=== PATIENT | male | born 1990 | race Caucasian/White ===

== ENCOUNTER 2023-09-08 09:00 | Outpatient (RCR) | payer BC, SELFPAY ==
--- NOTE | 2023-06-29 15:37 | PT.OPEX ---
PT [facility] Outpatient Eval PT [facility] Outpatient Eval Start: 06/29/23 12:37 Freq: Status: Active Protocol: Document 06/29/23 12:38 CRP (Rec: 06/29/23 15:32 CRP [id number]) E-signed By Han Granados PT Physical Therapy Outpatient Evaluation Insurance Information Recert Due Date 09/27/23 Insurance Name Medicaid Medical Diagnosis Back pain Referring MD Dr Reed Subjective Subjective Pt reports tightness in the back that can be painful. Fitness test 2 weeks ago. Aggravated his L sided LBP. Has had a long hx of back issues off and on. Initial issues 2010. Had bad nn sxs into the L LE shortly after onset in 2010. Since about 2016 he has not had much of an issue of pain into his leg. Pt currently reports no pain into his L LE. Denies numbness or tingling. Denies bowel/bladder issues. Pain increases with bending, lifting, carrying. No difference between standing or sitting. Pt wonders if the lift at the fitness testing was the biggest factor in injury his back. Pain and stiffness are not keeping him from sleeping. 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 Pain Comments 2-11/26 pain Current Work Status Division Head Objective Other/Pertinent Objective Posture: Flat lumbar spine Trunk AROM: Flex: WNL pain end range Ext: WNL R SB: WNL L SB: Min dec R rot: WNL L rot: min dec with conc pain Trunk PPIVM Flex: Min dec with mild discomfort Ext: Decreased pain R SB: Min restriction L SB: Pain noted Hip ROM: WNL bilat SLR: Negative bilat MMT: L ankle DF 4/5. 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 Pts presentation is characterized by decreased lumbar ROM, painful loss of lumbar spine segmental mobility and loss of function with bending, lifting and higher level activity such as running. Skilled PT necessary to incorporate ther ext, nm peng, manual therapy and pt education to decrease pain and improve functional mobility. Primary Functional Limitations Bending Lifting Carrying Running Plan of Care Rehabilitation Potential Excellent Physical Therapy Goals 1. Pt will be independent with HEP in 6 weeks. 2. Pt will be able to do [employer] lift a carry to prepare for fitness testing in 8 weeks. 3. Pt will be able to run 2 miles without increasing pain in 10 weeks Coordination/Communication With Referral Source Treatment Plan/Direct Interventions Joint Mobilization,Manual Therapy,Neuromuscular Re-ed, Self-Care/Home Management, Therapeutic Activities, Therapeutic Exercises Frequency/Duration 1-2x/wk for 12 weeks Patient Will Be Discharged From Therapy Completion of LTG(s),Skills Plateau,Independent w/HEP, Independently Progressing Evaluation Billing Untimed Code Treatment Minutes 30 Complexity Moderate Certification Information Initial Certification Date 06/29/23 Ending Certification Date 09/27/23 Provider Signature Shows Agreement With POC & Medical Necessity Physician Signature & Date Requested Please Sign/Date Here Physician Comment/Change : Physician NPI Number #
== END 2023-10-19 09:44 | disposition home or self-care (01) ==
PROVIDERS: PCP Internal Medicine; Visit Provider Internal Medicine
DX: M54.9 Dorsalgia, unspecified (principal); Z51.89 Encounter for other specified aftercare
CPT/HCPCS: 97110; 97140; 97162

== ENCOUNTER 2023-12-22 18:42 | Outpatient (CLI) | payer BC, SELFPAY ==
--- NOTE | 2023-12-22 19:00 | CRLHL7_ITS ---
For Patients: As a result of the Century Cures Act, medical imaging exams and procedure reports are released immediately into your electronic medical record. You may view this report before your referring provider. If you have questions, please contact your health care provider. INDICATION: Low back pain. TECHNIQUE: Noncontrast sagittal and axial T1, T2, and sagittal STIR sequences are provided. No comparisons. FINDINGS: The overall stature, alignment and intrinsic marrow signal of the lumbar spine is within normal limits. Conus is normal. L1-2: Unremarkable. L2-3: No central canal or foraminal narrowing. L3-4: No central canal or foraminal narrowing. L4-5: Left eccentric disc bulge extends approximately 5 millimeters beyond the posterior vertebral body margin resulting in severe left lateral recess narrowing with compression of the traversing left L5 nerve root. Moderate right lateral recess narrowing with moderate central canal narrowing. Neural foramina are patent. L5-S1: Tiny posterior central disc extrusion with caudal migration results in no significant central canal narrowing with very mild contact of the traversing S1 nerve roots. Central canal and neural foramina are patent. IMPRESSION: 1. Mild discogenic degenerative change at L4-5 resulting in moderate central canal and right lateral recess narrowing with severe left lateral recess narrowing and compression of the traversing left L5 nerve root. 2. Discogenic degenerative change at L5-S1 resulting in very mild contact of the traversing S1 nerve roots. Dictated by Mikel Ha MD @ 12/23/2023 2:34:09 PM (Electronically Signed)
== END 2023-12-22 18:43 | disposition home or self-care (01) ==
PROVIDERS: PCP Internal Medicine; Visit Provider Internal Medicine
DX: M54.50 Low back pain, unspecified (principal); M51.36 Other intervertebral disc degeneration, lumbar region
CPT/HCPCS: 72148

== ENCOUNTER 2024-02-15 10:07 | Outpatient (CLI) | payer BC, SELFPAY ==
--- OUTSIDE RECORDS SUMMARY | 2024-02-15 10:10 | XMS_ITS | Continuity of Care Document ---
Author Name [facility] Organization [facility] Care Team Providers Care Is Consultant Name Role Phone [facility] Unavailable Unavailable Immunizations Combined list of available immunizations from the Department of Defense and Veterans Affairs facilities. Immunization Series Date Given Administered By Site Reaction Lot Number CVX Code Drug Auto Transmission Technician Status Comments Source influenza, injectable, quadrivalent- pf 2020 [id number] 150 ID Biomedical comple t ed influenza , injectabl e, quadrival ent-pf 01/04/21 Given Ambulat ory Pharmac y hepatitis A adult vaccine 2020 zzLef t Arm [id number] 52 GlaxoSmithKli ne complet ed hepatitis A adult vaccine 10/25/20 Given Ambulat ory Pharmac y hepatitis A vaccine, adult dosage 2 2020 TIAN AN [id number] 52 SmithKline (SKB) complet ed hepatitis A vaccine, adult dosage DoD SARS-COV-2 (COVID-19) vaccine, mRNA, spike protein, LNP, preservative free, 100 mcg or 50 mcg dose 1 2020 UNK 207 Unknown (UNK) Not Given SARS-COV- 2 (COVID-19 ) vaccine, mRNA, spike protein, LNP, preservat gely free, 100 mcg or 50 mcg dose DoD measles, mumps and rubella virus vaccine 2 2020 UNK 03 Unknown (UNK) Not Given measles, mumps and rubella virus vaccine DoD influenza, injectable, quadrivalent- pf 2018 [id number] 150 Seqirus complet ed influenza , injectabl e, quadrival ent-pf 03/09/19 Given Ambulat ory Pharmac y Influenza, injectable, quadrivalent, preservative free 1 2018 [id number] 150 Seqirus (SEQ) complet ed Influenza , injectabl e, quadrival ent, preservat gely free DoD tetanus, diphtheria, acellular pertu is 2018 [id number] 115 GlaxoSmithKli ne complet ed tetanus, diphtheri a, acellular pertussis 12/23/18 Given Ambulat ory Pharmac y adenovirus vaccine, live 2018 [id number] 143 Teva Pharmaceutica ls complet ed adenoviru s vaccine, live 12/23/18 Given Ambulat ory Pharmac y meningococcal A,C,Y,W-135 (MCV4P) 2018 [id number] 114 sanofi pasteur complet ed meningoco ccal A,C,Y,W-1 35 (MCV4P) 12/23/18 Given Ambulat ory Pharmac y hepatitis A adult vaccine 2018 [id number] 52 GlaxoSmithKli ne complet ed hepatitis A adult vaccine 12/23/18 Given Ambulat ory Pharmac y poliovirus vaccine, inactivated 2018 [id number] 10 sanofi pasteur complet ed polioviru s vaccine, inactivat ed 12/23/18 Given Ambulat ory Pharmac y measles/mumps /rubella virus vaccine 2018 [id number] Merck & Company Inc complet ed measles/m umps/rube lla virus vaccine 12/23/18 Given Ambulat ory Pharmac y measles, mumps and rubella virus vaccine 1 2018 [id number] 03 Merck (MSD) complet ed measles, mumps and rubella virus vaccine DoD mumps virus vaccine 1 2018 UNK 07 Unknown (UNK) Not Given mumps virus vaccine DoD poliovirus vaccine, inactivated 1 2018 [id number] 10 Sanofi Pasteur (PMC) complet ed polioviru s vaccine, inactivat ed DoD varicella virus vaccine 1 2018 UNK 21 Unknown (UNK) Not Given varicella virus vaccine DoD hepatitis B vaccine, adult dosage 1 2018 UNK 43 Unknown (UNK) Not Given hepatitis B vaccine, adult dosage DoD hepatitis A vaccine, adult dosage 1 2018 [id number] 52 SmithSynageva BioPharmaine (SKB) complet ed hepatitis A vaccine, adult dosage DoD meningococcal polysaccharid e (groups A, C, Y and W-135) diphtheria toxoid conjugate vaccine (MCV4P) 1 2018 [id number] 114 Sanofi Pasteur (PMC) complet ed meningoco ccal polysacch aride (groups A, C, Y and W-135) diphtheri a toxoid conjugate vaccine (MCV4P) DoD tetanus toxoid, reduced diphtheria toxoid, and acellular pertu is vaccine, adsorbed 1 2018 [id number] 115 SmithKline (SKB) complet ed tetanus toxoid, reduced diphtheri a toxoid, and acellular pertussis vaccine, adsorbed DoD Adenovirus, type 4 and type 7, live, oral 1 2018 [id number] 5 143 [employer] Laboratories (BRR) complet ed Adenoviru s, type 4 and type 7, live, oral DoD Vital Signs Combined list of inpatient and outpatient Vital Signs from Department of Defense and Veterans Affairs, ranging from 12 months to all on record, depending upon the facility. Vital Sign Value Date Comments Source No data available for this section Ambulatory Pharmacy Encounters Combined list of: 1) Encounters from Department of Veterans Affairs facilities going back up to thelast 18 months. 2) Encounters from the Department of Defense facilities going back up to 280 months. Location Location Details Encounter Type Encounter Number Reason For Visit Attending Provider ADM Date DC Date Status Disposition Source [facility]) OUTPATIENT [id number] L Upper Back Pain BENTON HENRIQUEZ 01/16 Released w/o Limitations [facility] ) [facility] Primary Care) OUTPATIENT [id number] Notes Entered by: ILAN MONTE 02 Feb 2019 0909 ------- ------- ------- ------- -- IET IMM ILAN MONTE 02/02 Released w/o Limitations [facility](I Primary Care) [facility]) OUTPATIENT [id number] Notes Entered by: BENTON HENRIQUEZ 09 Feb 2019 0846 ------- ------- ------- ------- -- Mobilit y BENTON Cortes 02/09 Released w/o Limitations [facility] ) [facility] OUTPATIENT [id number] L Upper back Pain BENTON HENRIQUEZ 02/22 Released w/o Limitations [facility] ) [facility] [place]) OUTPATIENT [id number] Notes Entered by: ANDRAE HAMMOND 05 Aug 2020 1353 ------- ------- ------- ------- -- [facility] JAMES PAUL 08/05 Released w/o Limitations [facility] [place]) [facility] [place]) OUTPATIENT [id number] DECLINE D GAVIOTA LIND 09/01 Released w/o Limitations [facility] [place] [place]) OUTPATIENT [id number] Notes Entered by: MCKAYLA MENDOZA 24 Oct 2020 1005 ------- ------- ------- ------- -- IMMS - hep a MEGHANA CORCORAN 10/24 Released w/o Limitations [facility] [place]) [facility] [place]) OUTPATIENT [id number] Notes Entered by: ANDRAE HAMMOND 24 Oct 2020 1015 ------- ------- ------- ------- -- OUT PROCESS JAMES PAUL 10/24 Released w/o Limitations [facility] [place]) Procedures Combined list of: 1) Procedures from Department of Veterans Affairs facilities going back up to thelast 18 months, not all VA non-surgical procedures are included; 2) All procedures from the Department of Defense facilities. Procedure Procedure Type Code Date Perfomer Comments [facility] e Athletic Training Evaluation Low Complexity Athletic Training Evaluation Low Complexity 61162 BENTON HENRIQUEZ A isted Exercises For ROM Assisted Exercises [place] ROM 99840 BENTNO HENRIQUEZ Immunization Administration By Injection, One Vaccine Immunization Administration By Injection, One Vaccine 98816 ILAN MOTNE Immunization Administration By Injection, Each Additional Vaccine Immunization Administration By Injection, Each Additional Vaccine 25681 ILAN MONTE Hepatitis A Vaccine Adult Dosage (Intramuscular Use) Hepatitis A Vaccine Adult Dosage (Intramuscular Use) 31196 MELLSTEPHEN BRAVOA [facility] Vaccines Viral Polio, Inactivated Vaccines Viral Polio, Inactivated 40806 MELL ILAN [facility] Meningococcal Conjugate Vaccine Quadrivalent Serogroups A, C, Y, W-[address] [facility] Vaccines Viral Measles, Mumps and Rubella, Live Vaccines Viral Measles, Mumps and Rubella, Live 45542 MELL ILAN [facility] Tdap Vaccine Tdap Vaccine 11535 [facility] Intranasal / Oral Each Additional Vaccine Immunization Admin Intranasal / Oral Each Additional Vaccine 21448 MILILANI ILAN [facility] Vaccines Adenovirus Type 4 Live, For Oral Use Vaccines Adenovirus Type 4 Live, For Oral Use 71256 [facility] Vacc[facility] Adenovirus Type 7 Live, For Oral Use Vaccines Adenovirus Type 7 Live, For Oral Use 28167 MELL ILAN [facility] Physical Medicine - Group Physical Therapy Se ion Physical Medicine - Group Physical Therapy Session [address] [facility] Athletic Training Re-evaluation Athletic Training Re-evaluation [address] [facility] Hepatitis A Vaccine Adult Dosage (Intramuscular Use) Hepatitis A Vaccine Adult Dosage (Intramuscular Use) 60674 MEGHANA CORCORAN Hep A (Adult); Series #: 2; 1 mL; IM; Left Arm; g: [employer]; Lot: [id number]. [facility] THERAPEUTIC PROCEDURE, 1 OR MORE AREAS, EACH 15 MINUTES; THERAPEUTIC EXERCISES TO DEVELOP STRENGTH AND ENDURANCE, RANGE OF MOTION AND FLEXIBILITY 02/23/20 [facility] THERAPEUTIC PROCEDURE(S), GROUP (2 OR MORE INDIVIDUALS) 02/10/[address] [facility] ADENOVIRUS VACCINE, TYPE 7, LIVE, FOR ORAL USE 02/03/[address] [facility] THERAPEUTIC PROCEDURE, 1 OR MORE AREAS, EACH 15 MINUTES; THERAPEUTIC EXERCISES TO DEVELOP STRENGTH AND ENDURANCE, RANGE OF MOTION AND FLEXIBILITY 01/17/[address] [facility] EAR MOLD/INSERT, NOT DISPOSABLE, ANY TYPE 12/22/[address] [facility] HEPATITIS A VACCINE (HEPA), ADULT DOSAGE, FOR INTRAMUSCULAR USE 10/25/[address] [facility] No data available for this section Ambulato ry Pharmacy Social History Combined list of available smoking, tobacco, and other social history from Department of Defense and Veterans Affairs facilities. Social History Type Response Date Comment Sour e This section is an empty social history section. DoD Assessment and Plan Combined list of future care activities from Department of Defense and Veterans Affairs facilities (e.g., assessment and plan notes, appointments, orders, and referrals). Additional future care activities may be listed in the Plan of Care section. Result Assessment and Plan Date Source Assessment and Plan No data available for this section 02/15/2024 Ambulatory Pharmacy Functional Status Combined list of recent functional and cognitive assessments recorded at Department of Defense and Veterans Affairs (VA).VA Functional Loíza Measurement (FIM) Scale: 1 = Total Assistance (Subject = 0% +), 2 = Maximal Assistance (Subject = 25% +), 3 = Moderate Assistance (Subject = 50% +), 4 = Minimal Assistance (Subject = 75% +), 5 = Supervision, 6 = Modified Loíza (Device), 7 = Complete Loíza (Timely, Safely). Assessment Date/Time Source Assessment Type Assessment Skill Assessment Score Assessment Details No data available for this section
--- OUTSIDE RECORDS SUMMARY | 2024-02-15 10:10 | XMS_ITS | Clinical Summary ---
Author Organization [facility] Address [place], [place] [address] Care Team Providers Care Casing Inspector Name Role Phone Chung Reed MD Primary Care Provider Allergies No known active allergies Medications No known medications Active Problems Problem Noted Date Diagnosed Date Ingrowing nail 08/31/2006 Encounters Date Type Department Care Team Description 02/15/2024 Travel 02/13/2024 Travel 01/24/2024 Telephone [facility] [address] [place] [address] Chung Joshi MD Appointment (reschedule ) 01/20/2024 Travel 01/03/2024 8:40 AM CDT Office Visit [facility] [address] [place] [address] Chung Joshi MD Musculoskeletal Problem (Consult back pain per Dr. Reed) 01/03/2024 Travel 12/22/2023 Orders Only [facility] Scanner 1 scan: (1-Ord) [place], [place] LUMBAR SPINE WO CON, 12/22/2023 from Last 3 Months Immunizations Name Administration Dates Next Due DTP 08/02/1995, 2,01/10/1991,1990 ,1990 HIB HbOC (HibTITER) 10/17/1991,01/10/1991,1990,1990 Hepatitis B (Peds) 03/23/2000,10/24/1999, 000 MMR 09/26/1999,10/17/1991 Meningococcal Vaccine (Menactra) 02/18/2005 Oral Polio Vaccine 08/02/1995,01/29/1991, 991,1990 Td (Age >=7 Years) 03/20/2003 Social History Tobacco Use Types Packs/Day Years Used Date Smoking Tobacco: Never Smokeless Tobacco: Never Tobacco Cessation:Counseling Given: Not Answered Alcohol Use Standard Drinks/Week Comments Not Asked 0 (1 standard drink = 0.6 oz pur e alcohol) Social Connections Answer Date Recorded Frequency of Communication with Friends and Fami ly Not on file 01/03/2024 Sex and Gender Information Value Date Recorded Sex Assigned at Not on file Gender Identity Not on file Sexual Orientation Not on file Obstetrics History Last Filed Vital Signs Vital Sign Reading Time Taken Comments Blood Pressure 132/90 01/03/2024 8:47 AM CDT Pulse 93 04/04/2010 10:04 AM MEDICAL ADMINISTRATIVE ASSISTANT Temperature 37.9 ??C (100.2 ??F) 01/03/2024 8:47 AM CDT denies illness Respiratory Rate - - Oxygen Saturation 97% 01/03/2024 8:4 7 AM CDT Inhaled Oxygen Concentration - - Weight 111.6 kg (246 lb) 01/03/2024 8:4 7 AM CDT Height - - Body Mass Index - - Plan of Treatment Upcoming Encounters Date Type Department Care Team (Late st Contact Info) Description 02/15/2024 10:40 AM CDT Office Visit [facility] [address] [place] [address] Chung Joshi MD [address] [place] [address] Arrived 02/18/2024 10:40 AM CDT Office Visit [facility] [address] [place] [address] Chung Joshi MD [address] [place] [address] Health Maintenance Due Date Last Done Comments Tdap 2001 Depression screening for age 12+ 2002 HIV for age 15-65 2005 BMI (ht and wt on same day) for age 18+ 2008 Hepatitis C screening for ag e 18-79 2008 Tetanus booster 03/20/2013 03/20/2003 COVID-19 vaccine series ( season) 2023 Influenza for age 9-49 12/19/2023 Pneumococcal series for age 6-64 Aged Out No longer eligible based on patient's age to complete this topic Procedures Procedure Name Priority Date/Time Associated Diagnosis Comments AMB EPIDURAL STEROID INJECTION Routine 02/15/2024 8:06 AM CDT Lumbar radiculopathy Lumbar disc herniation DDD (degenerative disc disease), lumbar SCAN-MRI INTERPRETATION 12/22/19 12:00 AM CDT from Last 3 Months Results * SCAN-MRI INTERPRETATION (12/22/2023 12:00 AM CDT) Anatomical Region Laterality Modality Other Scanner OTHER from Last 3 Months Care Teams Casing Inspector Relationship Specialty Start Date End Date Chung Reed MD [address] [place] [address] PCP - General Internal Medicine 01/24/24
== END 2024-02-15 10:08 | disposition home or self-care (01) ==
LOC: INJ CL 10:08
PROVIDERS: PCP Internal Medicine; Visit Provider Family Medicine
DX: M54.16 Radiculopathy, lumbar region (principal); M51.369 Other intervertebral disc degeneration, lumbar region without mention of lumbar back pain or lower extremity pain
CPT/HCPCS: 64483; J1100; Q9966

== ENCOUNTER 2024-07-04 10:50 | Outpatient (CLI) | payer BC, SELFPAY | END 2024-07-04 10:51 | disposition home or self-care (01) | LOC: INJ CL 10:50 | PROVIDERS: PCP Internal Medicine; Visit Provider Family Medicine | DX: M54.16 Radiculopathy, lumbar region (principal); M51.26 Other intervertebral disc displacement, lumbar region | CPT/HCPCS: 64483; J1100; Q9966 ==